=== PATIENT | male | born 1960 | race African-American/Black ===

== ENCOUNTER 2018-08-22 05:03 | Emergency (ER) | payer BC ==
[2018-08-22 05:14] VITALS: BP 186/98; PULSE 86; TEMP 97.9; BMI 25.5
[2018-08-22] MEDS ORDERED: diazePAM 5 MG TABLET PO ONE (05:25)
[2018-08-22] MEDS ORDERED: KETOROLAC TROMETHAMINE 60 MG/2 ML VIAL IM ONE (05:25)
--- NOTE | 2018-08-22 05:38 | PDOC ---
History of Present Illness - General Chief Complaint: Pain, Acute Stated Complaint: RIGHT SHOULDER PAIN Time Seen by Provider: 08/22/18 05:18 - History of Present Illness Initial Comments: 08/22/18 05:32 CHIEF COMPLAINT: R shoulder/neck pian HISTORY OF PRESENT ILLNESS: 57 yo M with hx of diabetes presents to ED with pain to R shoulder x "3-4 weeks." Patient reports that the pain was relieved by taking an Percocet yesterday but today he took another one without relief. He reports the pain is worsened when he turns his head laterally to the right and that the pain "feels like a muscle spasm now", but denies any pain with movement of the R shoulder or on palpation. Patient denies any chest pain or shortness of breath. No recent travel or sick contacts. PAST MEDICAL HISTORY: diabetes FAMILY HISTORY: Denies SOCIAL HISTORY: Denies tobacco, alcohol, illicit drug use. SURGICAL HISTORY: Denies ALLERGIES: No known drug allergies REVIEW OF SYSTEMS General/Constitutional: Denies fever or chills. Denies weakness, weight change. HEENT: Denies change in vision. Denies ear pain or discharge. Denies sore throat. Cardiovascular: Denies chest pain or shortness of breath. Respiratory: Denies cough, wheezing, or hemoptysis. Gastrointestinal: Denies nausea, vomiting, diarrhea or constipation. Denies rectal bleeding. Genitourinary: Denies dysuria, frequency, or change in urination. Musculoskeletal: R shoulder/neck pain x "3-4 weeks." Skin and breasts: Denies rash or easy bruising. Neurologic: Denies headache, vertigo, loss of consciousness, or loss of sensation. PHYSICAL EXAM General Appearance: Well-appearing, appropriately dressed. No apparent distress. HEENT: EOMI, PERRLA, normal ENT inspection, normal voice, TMs normal, pharynx normal. No conjunctival pallor. No photophobia, scleral icterus. Neck: Supple. Trachea midline. No tenderness, rigidity, carotid bruit, stridor , lymphadenopathy, or thyromegaly. Respiratory/Chest: Lungs CTAB. No shortness of breath, chest tenderness, respiratory distress, accessory muscle use. No crackles, rales, rhonchi, stridor , wheezing, dullness Cardiovascular: RRR. S1, S2. No JVD, murmur, bradycardia, tachycardia. Vascular Pulses: Dorsalis-Pedis (R): 2+, Dorsalis-Pedis (L): 2+ Gastrointestinal/Abdominal: Normal bowel sounds. Abdomen soft, non-distended. No tenderness or rebound tenderness. No organomegaly, pulsatile mass, guarding , hernia, hepatomegaly, splenomegaly. Lymphatic: No adenopathy, tenderness. Musculoskeletal/Extremities: Pain to R trapezius to R lateral neck and scapula with lateral rotation of the head to the right side. Normal inspection. FROM of all extremities, normal capillary refill. Pelvis Stable. No CVA tenderness. No tenderness to extremities, pedal edema, swelling, erythema or deformity. Integumentary: Appropriate color, dry, warm. No cyanosis, erythema, jaundice or rash Neurologic: sign fabricator II-XII intact. Fully oriented, alert. Appropriate mood/affect. Motor strength 5/5. No appreciable EOM palsy, facial droop or sensory deficit. 08/22/18 05:58 Past History - Past Medical History Allergies/Adverse Reactions: Allergies Allergy/AdvReac Type Severity Reaction Status Date / Time No Known Allergies Allergy Verified 08/22/18 05:12 Home Medications: Ambulatory Orders Oxycodone HCl/Acetaminophen [Percocet 5/325 -] 1 tab PO Q6H #10 tablet 12/22/15 Cyclobenzaprine HCl 10 mg PO TID PRN #21 tablet 08/22/18 Naproxen [Naprosyn] 500 mg PO BID #20 tablet 08/22/18 COPD: No Diabetes: Yes - Immunization History Immunization Up to Date: Yes - Suicide/Smoking/Psychosocial Hx Smoking History: Never smoked Have you smoked in the past 12 months: No Number of Cigarettes Smoked Daily: 0 Information on smoking cessation initiated: No Hx Alcohol Use: No Drug/Substance Use Hx: No Substance Use Type: None *Physical Exam - Vital Signs Last Vital Signs Temp Pulse Resp BP Pulse Ox 97.9 F 86 20 186/98 H 99 08/22/18 05:12 08/22/18 05:12 08/22/18 05:12 08/22/18 05:12 08/22/18 05:12 Medical Decision Making - Medical Decision Making 08/22/18 05:38 57 yo M with hx of diabetes presents to ED with pain to R shoulder x "3-4 weeks. " -Toradol -Valium 08/22/18 06:06 Patient reassessed, at this time he reports feeling better and is able to turn his head laterally to both L and R without pain. *DC/Admit/Observation/Transfer Diagnosis at time of Disposition: Muscle spasm - Discharge Dispostion Disposition: HOME Condition at time of disposition: Stable Decision to Admit order: No - Prescriptions Prescriptions: Cyclobenzaprine HCl 10 mg PO TID PRN #21 tablet PRN Reason: Muscle Spasms Naproxen [Naprosyn] 500 mg PO BID #20 tablet - Referrals Referrals: ON STAFF,NOT [Primary Care Provider] - Yair Sweeney MD [Staff Physician] - - Patient Instructions Printed Discharge Instructions: DI for Cervical Muscle Strain Additional Instructions: Please take medications as prescribed. Do NOT drive, drink alcohol, or operate machinery while taking cyclobenzaprine. If you develop chest pain, shortness of breath, worsening pain, or any new or worsening symptoms, please return to the ER. - Post Discharge Activity Forms/Work/School Notes: Back to Work
== END 2018-08-22 06:26 | disposition home or self-care (01) ==
LOC: JER 05:03
PROC: 3E0233Z Introduction of Anti-inflammatory into Muscle, Percutaneous Approach (ICD-10-PCS; principal; 2018-08-22)
DX: M62.838 Other muscle spasm (principal); E11.9 Type 2 diabetes mellitus without complications
CPT/HCPCS: 99282-25